=== PATIENT | male | born 1995 | race Caucasian/White ===

== ENCOUNTER 2024-06-14 16:37 | Emergency (ER) | payer OTHER ==
[~2024-06-14] VITALS: Ht 182.9 cm; Wt 74.8 kg
[2024-06-14 17:28] VITALS: BP 156/96; TEMP 98.4; O2SAT 99
[2024-06-14] MEDS ORDERED: AMOX-430 PO (20:42)
[2024-06-14 21:19] LABS: MONOTEST NEGATIVE (NEGATIVE)
== END 2024-06-14 22:28 | disposition home or self-care (01) ==
LOC: ER 16:42
DX: J03.90 Acute tonsillitis, unspecified (principal); Z60.2 Problems related to living alone
CPT/HCPCS: 36415; 86308-TC; 86403-TC; J7030